=== PATIENT | female | born 1950 | race African-American/Black ===

== ENCOUNTER 2017-04-15 13:26 | Emergency (ER) | payer MEDICARE, OTHER ==
[2017-04-15] MEDS: PANTOPRAZOLE 40 MG INJ IV (18:58)
[2017-04-15] MEDS: SOD CHLORIDE 0.9% 1,000 ML IV (18:58)
[2017-04-15] MEDS: LORAZEPAM 2 MG INJ IV (18:59)
[2017-04-15] MEDS: morphine 4 MG/ML VIAL IV (18:59)
[2017-04-15] MEDS: ONDANSETRON 4 MG INJ IV (18:59)
[2017-04-15 19:04] LABS: ADD MAN DIFF? NO
[2017-04-15 19:05] LABS: WHITE BLOOD COUNT 5.4 10^3/ul (4.8-10.8)
[2017-04-15 19:06] LABS: BASOPHILS % 0.6 % (0.0-2.0); EOSINOPHILS # 0.1 10^3/ul (0.0-0.5); EOSINOPHILS % 0.9 % (0.0-7.0); HEMATOCRIT 38.9 % (37.0-47.0); LYMPHOCYTES # 1.2 10^3/ul (0.8-2.9); LYMPHOCYTES % 21.2 % (15.0-51.0); MEAN CORPUSCULAR HEMOGLOBIN 29.4 pg (29.0-33.0); MEAN CORPUSCULAR HGB CONC 33.4 g/dl (32.0-37.0); MEAN PLATELET VOLUME 10.6 fl (7.4-10.4); MONOCYTE # 0.6 10^3/ul (0.3-0.9); MONOCYTES % 11.6 % (0.0-11.0); NEUTROPHIL # 3.6 10^3/ul (1.6-7.5); NEUTROPHILS % 65.5 % (39.0-77.0); PLATELET COUNT 240 10^3/UL (140-415); RED BLOOD COUNT 4.42 10^6/ul (4.20-5.40)
[2017-04-15 19:23] LABS: INR 0.96; PROTIME 12.9 Sec (11.9-14.9)
[2017-04-15 19:24] LABS: ALANINE AMINOTRANSFERASE 32 IU/L (13-69); ALBUMIN 4.6 g/dl (3.3-4.9); ALBUMIN/GLOBULIN RATIO 1.12; ALKALINE PHOSPHATASE 84 IU/L (42-121); ANION GAP 16 (8-16); ASPARTATE AMINO TRANSFERASE 34 IU/L (15-46); BILIRUBIN,INDIRECT 0.3 mg/dl (0-1.1); BILIRUBIN,TOTAL 0.3 mg/dl (0.2-1.3); BLOOD UREA NITROGEN 18 mg/dl (7-20); CALCIUM 10.3 mg/dl (8.4-10.2); CARBON DIOXIDE 26 mmol/L (21-31); CHLORIDE 105 mmol/L (97-110); CREATININE 0.93 mg/dl (0.44-1.00); GLUCOSE 107 mg/dl (70-220); PARTIAL THROMBOPLASTIN TIME 33.3 Sec (25.0-35.0); POTASSIUM 4.1 mmol/L (3.5-5.1); SODIUM 143 mmol/L (135-144); TOTAL PROTEIN 8.7 g/dl (6.1-8.1)
[2017-04-15 19:36] LABS: TROPONIN-I < 0.012 ng/ml (0.00-0.12)
== END 2017-04-15 22:16 | disposition home or self-care (01) ==
LOC: E/R 13:26
DX: K62.5 Hemorrhage of anus and rectum (principal); J44.9 Chronic obstructive pulmonary disease, unspecified; Z85.118 Personal history of other malignant neoplasm of bronchus and lung
CPT/HCPCS: 36415; 74176; 80053; 84484; 85025; 85610; 85730; 86850; 86870; 86900; 86901; 93005; 96374; 96375; 99285-25

== ENCOUNTER 2017-05-08 19:07 | Emergency (ER) | payer MEDICARE, OTHER ==
[2017-05-08 21:46] LABS: ADD MAN DIFF? NO
[2017-05-08 21:48] LABS: WHITE BLOOD COUNT 5.6 10^3/ul (4.8-10.8)
[2017-05-08 21:48] LABS: BASOPHILS % 0.5 % (0.0-2.0); EOSINOPHILS # 0.1 10^3/ul (0.0-0.5); EOSINOPHILS % 1.3 % (0.0-7.0); HEMATOCRIT 37.7 % (37.0-47.0); HEMOGLOBIN 12.6 g/dl (12.0-16.0); LYMPHOCYTES # 1.2 10^3/ul (0.8-2.9); LYMPHOCYTES % 21.7 % (15.0-51.0); MEAN CORPUSCULAR HEMOGLOBIN 29.8 pg (29.0-33.0); MEAN CORPUSCULAR HGB CONC 33.4 g/dl (32.0-37.0); MEAN CORPUSCULAR VOLUME 89.1 fl (82.0-101.0); MEAN PLATELET VOLUME 10.5 fl (7.4-10.4); MONOCYTE # 0.6 10^3/ul (0.3-0.9); MONOCYTES % 11.3 % (0.0-11.0); NEUTROPHIL # 3.6 10^3/ul (1.6-7.5); PLATELET COUNT 246 10^3/UL (140-415); RED BLOOD COUNT 4.23 10^6/ul (4.20-5.40); RED CELL DISTRIBUTION WIDTH 14.6 % (11.5-14.5)
[2017-05-08 22:03] LABS: ADD UMIC YES; UR ASCORBIC ACID NEGATIVE (NEGATIVE); UR BILIRUBIN (Dip) NEGATIVE (NEGATIVE); UR BLOOD (Dip) 1+ mg/dL (NEGATIVE); UR CLARITY SLIGHTLY CLOUDY (CLEAR); UR COLOR YELLOW (YELLOW); UR GLUCOSE (Dip) NEGATIVE (NEGATIVE); UR KETONES (Dip) NEGATIVE (NEGATIVE); UR LEUKOCYTE ESTERASE (Dip) TRACE Leu/ul (NEGATIVE); UR NITRITE (Dip) NEGATIVE (NEGATIVE); UR RBC 1 /HPF (0-5); UR SPECIFIC GRAVITY (Dip) 1.009 (1.003-1.030); UR TOTAL PROTEIN (Dip) NEGATIVE (NEGATIVE); UR UROBILINOGEN (Dip) NEGATIVE (NEGATIVE); UR WBC 1 /HPF (0-5)
[2017-05-08 22:09] LABS: ALANINE AMINOTRANSFERASE 42 IU/L (13-69); ALBUMIN 4.5 g/dl (3.3-4.9); ALBUMIN/GLOBULIN RATIO 1.18; ALKALINE PHOSPHATASE 79 IU/L (42-121); ANION GAP 16 (8-16); ASPARTATE AMINO TRANSFERASE 39 IU/L (15-46); BILIRUBIN,INDIRECT 0.2 mg/dl (0-1.1); BILIRUBIN,TOTAL 0.2 mg/dl (0.2-1.3); BLOOD UREA NITROGEN 14 mg/dl (7-20); CALCIUM 9.7 mg/dl (8.4-10.2); CARBON DIOXIDE 26 mmol/L (21-31); CHLORIDE 104 mmol/L (97-110); GLUCOSE 96 mg/dl (70-220); LIPASE 94 U/L (23-300); POTASSIUM 3.8 mmol/L (3.5-5.1); SODIUM 142 mmol/L (135-144); TOTAL PROTEIN 8.3 g/dl (6.1-8.1)
[2017-05-08] MEDS: IOHEXOL 300MG/ML 150 ML BTL (23:49)
[2017-05-08] MEDS: SOD CHLORIDE 0.9% 100 ML (23:49)
[2017-05-09] MEDS: ACETAMINOPHEN 500 MG TAB PO (00:26)
== END 2017-05-09 01:18 | disposition home or self-care (01) ==
LOC: FTE 05-09 01:18
DX: S30.1XXA Contusion of abdominal wall, initial encounter (principal); R40.2142 Coma scale, eyes open, spontaneous, at arrival to emergency department; J44.9 Chronic obstructive pulmonary disease, unspecified; Y08.89XA Assault by other specified means, initial encounter; Z85.118 Personal history of other malignant neoplasm of bronchus and lung
CPT/HCPCS: 36415; 74177; 80053; 81001; 83690; 85025; 99285-25

== ENCOUNTER 2017-06-18 14:54 | Emergency (ER) | payer MEDICARE, OTHER | END 2017-06-18 15:16 | disposition home or self-care (01) | LOC: E/R 14:54 | DX: K02.9 Dental caries, unspecified (principal); K04.7 Periapical abscess without sinus; J44.9 Chronic obstructive pulmonary disease, unspecified; Z85.118 Personal history of other malignant neoplasm of bronchus and lung | CPT/HCPCS: 99284 ==

== ENCOUNTER 2018-02-08 16:46 | Emergency (ER) | payer MEDICARE, OTHER | END 2018-02-08 20:39 | disposition home or self-care (01) | LOC: FTE 20:39 | DX: J44.1 Chronic obstructive pulmonary disease with (acute) exacerbation (principal); Z85.118 Personal history of other malignant neoplasm of bronchus and lung | CPT/HCPCS: 99283; 99283-25 ==

== ENCOUNTER 2018-06-17 08:17 | Emergency (ER) | payer MEDICARE, OTHER ==
[2018-06-17] MEDS: morphine 2 MG INJ IV ×2 (09:11→09:56)
[2018-06-17] MEDS: VANCOMYCIN 1 GM (PMX) 250 ML IVPB (09:19)
[2018-06-17 09:23] LABS: WHITE BLOOD COUNT 14.4 10^3/ul (4.8-10.8)
[2018-06-17 09:23] LABS: ABNORMAL IP MESSAGE 1; ADD MAN DIFF? NO; BASOPHILS % 0.2 % (0.0-2.0); EOSINOPHILS % 0.2 % (0.0-7.0); HEMATOCRIT 40.4 % (37.0-47.0); HEMOGLOBIN 12.9 g/dl (12.0-16.0); LYMPHOCYTES # 0.6 10^3/ul (0.8-2.9); LYMPHOCYTES % 3.9 % (15.0-51.0); MEAN CORPUSCULAR HGB CONC 31.9 g/dl (32.0-37.0); MEAN CORPUSCULAR VOLUME 90.8 fl (82.0-101.0); MEAN PLATELET VOLUME 10.4 fl (7.4-10.4); NEUTROPHIL # 12.7 10^3/ul (1.6-7.5); NEUTROPHILS % 88.3 % (39.0-77.0); PLATELET COUNT 277 10^3/UL (140-415); RED BLOOD COUNT 4.45 10^6/ul (4.20-5.40); RED CELL DISTRIBUTION WIDTH 14.3 % (11.5-14.5)
[2018-06-17 09:35] LABS: POSITIVE DIFF @See below
[2018-06-17 11:26] LABS: ANION GAP 7 (5-13); BLOOD UREA NITROGEN 15 mg/dl (7-20); CALCIUM 9.8 mg/dl (8.4-10.2); CARBON DIOXIDE 26 mmol/L (21-31); CHLORIDE 106 mmol/L (97-110); Estimated GFR > 60 mL/min (>60); GLUCOSE 114 mg/dl (70-220); POTASSIUM 4.1 mmol/L (3.5-5.1); SODIUM 139 mmol/L (135-144)
== END 2018-06-17 13:30 | disposition home or self-care (01) ==
LOC: E/R 08:17
DX: N61.0 Mastitis without abscess (principal)
CPT/HCPCS: 36415; 71045; 80048; 85025; 96374; 96375; 96376; 99284-25

== ENCOUNTER 2018-06-25 18:28 | Inpatient (IN) | payer MEDICARE, OTHER ==
[2018-06-25] MEDS: ONDANSETRON 4 MG INJ IV ×2 (22:38→23:55)
[2018-06-25] MEDS: HYDROmorphONE 1 MG/ML SYG IV (22:38)
[2018-06-25 23:13] LABS: ADD MAN DIFF? NO
[2018-06-25 23:15] LABS: WHITE BLOOD COUNT 9.2 10^3/ul (4.8-10.8)
[2018-06-25 23:15] LABS: BASOPHILS % 0.3 % (0.0-2.0); EOSINOPHILS # 0.1 10^3/ul (0.0-0.5); EOSINOPHILS % 0.8 % (0.0-7.0); HEMATOCRIT 34.9 % (37.0-47.0); HEMOGLOBIN 11.7 g/dl (12.0-16.0); LYMPHOCYTES % 11.1 % (15.0-51.0); MEAN CORPUSCULAR HEMOGLOBIN 28.9 pg (29.0-33.0); MEAN CORPUSCULAR HGB CONC 33.5 g/dl (32.0-37.0); MEAN CORPUSCULAR VOLUME 86.2 fl (82.0-101.0); MEAN PLATELET VOLUME 10.2 fl (7.4-10.4); MONOCYTE # 1.3 10^3/ul (0.3-0.9); MONOCYTES % 14.3 % (0.0-11.0); NEUTROPHIL # 6.6 10^3/ul (1.6-7.5); NEUTROPHILS % 72.1 % (39.0-77.0); PLATELET COUNT 385 10^3/UL (140-415); RED BLOOD COUNT 4.05 10^6/ul (4.20-5.40); RED CELL DISTRIBUTION WIDTH 14.1 % (11.5-14.5)
[2018-06-25 23:20] LABS: ADD UMIC YES; UR ASCORBIC ACID NEGATIVE (NEGATIVE); UR BILIRUBIN (Dip) NEGATIVE (NEGATIVE); UR BLOOD (Dip) 1+ mg/dL (NEGATIVE); UR CLARITY CLEAR (CLEAR); UR COLOR STRAW (YELLOW); UR GLUCOSE (Dip) NEGATIVE (NEGATIVE); UR KETONES (Dip) NEGATIVE (NEGATIVE); UR LEUKOCYTE ESTERASE (Dip) NEGATIVE Leu/ul (NEGATIVE); UR NITRITE (Dip) NEGATIVE (NEGATIVE); UR RBC 2 /HPF (0-5); UR SPECIFIC GRAVITY (Dip) 1.009 (1.003-1.030); UR TOTAL PROTEIN (Dip) NEGATIVE (NEGATIVE); UR UROBILINOGEN (Dip) NEGATIVE (NEGATIVE); UR WBC 1 /HPF (0-5)
[2018-06-25 23:31] LABS: ALANINE AMINOTRANSFERASE 24 IU/L (13-69); ALBUMIN 4.3 g/dl (3.3-4.9); ALBUMIN/GLOBULIN RATIO 1.02; ALKALINE PHOSPHATASE 89 IU/L (42-121); ANION GAP 10 (5-13); ASPARTATE AMINO TRANSFERASE 43 IU/L (15-46); BILIRUBIN,INDIRECT 0.5 mg/dl (0-1.1); BILIRUBIN,TOTAL 0.5 mg/dl (0.2-1.3); BLOOD UREA NITROGEN 15 mg/dl (7-20); CALCIUM 10.5 mg/dl (8.4-10.2); CARBON DIOXIDE 26 mmol/L (21-31); CHLORIDE 93 mmol/L (97-110); CREATININE 0.83 mg/dl (0.44-1.00); Estimated GFR > 60 mL/min (>60); GLUCOSE 104 mg/dl (70-220); LIPASE 68 U/L (23-300); POTASSIUM 5.3 mmol/L (3.5-5.1); SODIUM 129 mmol/L (135-144); TOTAL PROTEIN 8.5 g/dl (6.1-8.1)
[2018-06-25 23:34] LABS: INR 0.92; PROTIME 12.5 Sec (11.9-14.9)
[2018-06-25 23:35] LABS: PARTIAL THROMBOPLASTIN TIME 33.9 Sec (23.0-35.0)
[2018-06-25] MEDS: HYDROmorphONE 0.5 MG/0.5 ML SYG IV (23:55)
[2018-06-26] MEDS: ONDANSETRON 4 MG INJ IV (03:25)
[2018-06-26] MEDS: DICYCLOMINE 20 MG INJ IM (03:41)
[2018-06-26] MEDS: metroNIDAZOLE 500 MG/NS (PMX) 100 ML IVPB ×4 (05:31→23:51)
[2018-06-26] MEDS: morphine 2 MG INJ IV ×4 (07:55→21:08)
[2018-06-27] MEDS: morphine 2 MG INJ IV ×6 (01:34→22:38)
[2018-06-27] MEDS: HYDROCODONE/APAP (5/325) TAB PO ×2 (02:14→16:50)
[2018-06-27] MEDS: metroNIDAZOLE 500 MG/NS (PMX) 100 ML IVPB ×3 (05:12→17:23)
[2018-06-27] MEDS: DOCUSATE SODIUM 100 MG CAP PO (05:19)
[2018-06-27] MEDS: ONDANSETRON 4 MG INJ IV ×2 (05:22→13:55)
[2018-06-27 06:08] LABS: ADD MAN DIFF? NO
[2018-06-27 06:18] LABS: BASOPHILS % 0.4 % (0.0-2.0); EOSINOPHILS # 0.1 10^3/ul (0.0-0.5); EOSINOPHILS % 0.7 % (0.0-7.0); HEMATOCRIT 32.3 % (37.0-47.0); HEMOGLOBIN 10.7 g/dl (12.0-16.0); LYMPHOCYTES # 1.1 10^3/ul (0.8-2.9); LYMPHOCYTES % 13.2 % (15.0-51.0); MEAN CORPUSCULAR HEMOGLOBIN 28.8 pg (29.0-33.0); MEAN CORPUSCULAR HGB CONC 33.1 g/dl (32.0-37.0); MEAN CORPUSCULAR VOLUME 87.1 fl (82.0-101.0); MEAN PLATELET VOLUME 9.7 fl (7.4-10.4); MONOCYTE # 1.1 10^3/ul (0.3-0.9); MONOCYTES % 14.1 % (0.0-11.0); NEUTROPHIL # 5.6 10^3/ul (1.6-7.5); NEUTROPHILS % 70.1 % (39.0-77.0); PLATELET COUNT 414 10^3/UL (140-415); RED BLOOD COUNT 3.71 10^6/ul (4.20-5.40)
[2018-06-27 07:19] LABS: ANION GAP 11 (5-13); BLOOD UREA NITROGEN 21 mg/dl (7-20); CALCIUM 9.6 mg/dl (8.4-10.2); CARBON DIOXIDE 24 mmol/L (21-31); CHLORIDE 95 mmol/L (97-110); CREATININE 0.98 mg/dl (0.44-1.00); Estimated GFR > 60 mL/min (>60); GLUCOSE 96 mg/dl (70-220); POTASSIUM 4.7 mmol/L (3.5-5.1); SODIUM 130 mmol/L (135-144)
[2018-06-27] MEDS: SOD CHLORIDE 0.9% 1,000 ML IV (17:23)
[2018-06-28] MEDS: metroNIDAZOLE 500 MG/NS (PMX) 100 ML IVPB ×4 (00:16→18:03)
[2018-06-28] MEDS: morphine 2 MG INJ IV ×5 (02:39→21:07)
[2018-06-28] MEDS: SOD CHLORIDE 0.9% 1,000 ML IV ×2 (12:06→18:09)
[2018-06-28] MEDS: PANTOPRAZOLE 40 MG INJ IV (18:03)
[2018-06-29] MEDS: metroNIDAZOLE 500 MG/NS (PMX) 100 ML IVPB ×5 (01:05→23:32)
[2018-06-29] MEDS: morphine 2 MG INJ IV ×6 (01:07→21:10)
[2018-06-29] MEDS: PANTOPRAZOLE 40 MG INJ IV ×2 (05:09→17:10)
[2018-06-29 09:15] LABS: ADD MAN DIFF? NO
[2018-06-29 09:19] LABS: BASOPHILS % 0.6 % (0.0-2.0); EOSINOPHILS # 0.1 10^3/ul (0.0-0.5); HEMATOCRIT 31.6 % (37.0-47.0); HEMOGLOBIN 10.2 g/dl (12.0-16.0); LYMPHOCYTES # 1.1 10^3/ul (0.8-2.9); LYMPHOCYTES % 21.2 % (15.0-51.0); MEAN CORPUSCULAR HEMOGLOBIN 28.6 pg (29.0-33.0); MEAN CORPUSCULAR HGB CONC 32.3 g/dl (32.0-37.0); MEAN CORPUSCULAR VOLUME 88.5 fl (82.0-101.0); MEAN PLATELET VOLUME 9.3 fl (7.4-10.4); MONOCYTE # 0.8 10^3/ul (0.3-0.9); MONOCYTES % 14.9 % (0.0-11.0); NEUTROPHIL # 3.1 10^3/ul (1.6-7.5); NEUTROPHILS % 60.3 % (39.0-77.0); PLATELET COUNT 413 10^3/UL (140-415); RED BLOOD COUNT 3.57 10^6/ul (4.20-5.40); RED CELL DISTRIBUTION WIDTH 14.6 % (11.5-14.5)
[2018-06-29 09:19] LABS: WHITE BLOOD COUNT 5.1 10^3/ul (4.8-10.8)
[2018-06-29 09:39] LABS: ANION GAP 6 (5-13); BLOOD UREA NITROGEN 12 mg/dl (7-20); CALCIUM 9.5 mg/dl (8.4-10.2); CARBON DIOXIDE 28 mmol/L (21-31); CHLORIDE 103 mmol/L (97-110); CREATININE 0.81 mg/dl (0.44-1.00); Estimated GFR > 60 mL/min (>60); GLUCOSE 90 mg/dl (70-220); POTASSIUM 4.6 mmol/L (3.5-5.1); SODIUM 137 mmol/L (135-144)
[2018-06-29] MEDS: SOD CHLORIDE 0.9% 1,000 ML IV (23:28)
[2018-06-30] MEDS: morphine 2 MG INJ IV ×5 (01:15→20:29)
[2018-06-30] MEDS: metroNIDAZOLE 500 MG/NS (PMX) 100 ML IVPB ×4 (05:32→23:57)
[2018-06-30] MEDS: PANTOPRAZOLE 40 MG INJ IV ×2 (05:32→17:53)
[2018-06-30] MEDS: CHLORDIAZEPOXIDE/CLIDINIUM CAP PO ×3 (12:02→20:28)
[2018-06-30] MEDS: HYDROCODONE/APAP (5/325) TAB PO (16:47)
[2018-06-30] MEDS: SOD CHLORIDE 0.9% 1,000 ML IV (17:53)
[2018-07-01] MEDS: HYDROCODONE/APAP (5/325) TAB PO ×4 (01:23→20:42)
[2018-07-01] MEDS: PANTOPRAZOLE 40 MG INJ IV ×2 (05:54→17:45)
[2018-07-01] MEDS: metroNIDAZOLE 500 MG/NS (PMX) 100 ML IVPB ×3 (05:54→17:45)
[2018-07-01 06:20] LABS: ADD MAN DIFF? NO
[2018-07-01 06:24] LABS: BASOPHILS % 0.5 % (0.0-2.0); EOSINOPHILS # 0.2 10^3/ul (0.0-0.5); EOSINOPHILS % 4.4 % (0.0-7.0); HEMATOCRIT 29.7 % (37.0-47.0); HEMOGLOBIN 9.7 g/dl (12.0-16.0); LYMPHOCYTES # 1.2 10^3/ul (0.8-2.9); MEAN CORPUSCULAR HEMOGLOBIN 29.1 pg (29.0-33.0); MEAN CORPUSCULAR HGB CONC 32.7 g/dl (32.0-37.0); MEAN CORPUSCULAR VOLUME 89.2 fl (82.0-101.0); MEAN PLATELET VOLUME 9.4 fl (7.4-10.4); MONOCYTE # 0.7 10^3/ul (0.3-0.9); MONOCYTES % 13.4 % (0.0-11.0); NEUTROPHIL # 3.3 10^3/ul (1.6-7.5); NEUTROPHILS % 59.3 % (39.0-77.0); PLATELET COUNT 415 10^3/UL (140-415); RED BLOOD COUNT 3.33 10^6/ul (4.20-5.40)
[2018-07-01 06:24] LABS: WHITE BLOOD COUNT 5.5 10^3/ul (4.8-10.8)
[2018-07-01 07:05] LABS: ALANINE AMINOTRANSFERASE 24 IU/L (13-69); ALBUMIN 3.5 g/dl (3.3-4.9); ALBUMIN/GLOBULIN RATIO 1.16; ALKALINE PHOSPHATASE 58 IU/L (42-121); ANION GAP 7 (5-13); ASPARTATE AMINO TRANSFERASE 30 IU/L (15-46); BILIRUBIN,INDIRECT 0.2 mg/dl (0-1.1); BILIRUBIN,TOTAL 0.2 mg/dl (0.2-1.3); BLOOD UREA NITROGEN 18 mg/dl (7-20); CALCIUM 9.2 mg/dl (8.4-10.2); CARBON DIOXIDE 29 mmol/L (21-31); CHLORIDE 103 mmol/L (97-110); CREATININE 0.92 mg/dl (0.44-1.00); Estimated GFR > 60 mL/min (>60); GLUCOSE 78 mg/dl (70-220); POTASSIUM 4.5 mmol/L (3.5-5.1); SODIUM 139 mmol/L (135-144); TOTAL PROTEIN 6.5 g/dl (6.1-8.1)
[2018-07-01] MEDS: CHLORDIAZEPOXIDE/CLIDINIUM CAP PO ×4 (08:01→20:42)
[2018-07-01] MEDS: SOD CHLORIDE 0.9% 1,000 ML IV (08:04)
[2018-07-01] MEDS: DOCUSATE SODIUM 100 MG CAP PO (14:46)
[2018-07-02] MEDS: metroNIDAZOLE 500 MG/NS (PMX) 100 ML IVPB ×4 (00:20→17:25)
[2018-07-02] MEDS: IBUPROFEN 400 MG TAB PO ×2 (00:56→07:36)
[2018-07-02] MEDS: HYDROCODONE/APAP (5/325) TAB PO (03:39)
[2018-07-02] MEDS: DOCUSATE SODIUM 100 MG CAP PO ×2 (03:47→13:15)
[2018-07-02] MEDS: PANTOPRAZOLE 40 MG INJ IV ×2 (06:05→17:26)
[2018-07-02 07:17] LABS: ADD MAN DIFF? NO
[2018-07-02 07:19] LABS: BASOPHILS % 0.2 % (0.0-2.0); EOSINOPHILS # 0.2 10^3/ul (0.0-0.5); EOSINOPHILS % 3.5 % (0.0-7.0); HEMATOCRIT 28.8 % (37.0-47.0); HEMOGLOBIN 9.4 g/dl (12.0-16.0); LYMPHOCYTES # 1.3 10^3/ul (0.8-2.9); LYMPHOCYTES % 25.6 % (15.0-51.0); MEAN CORPUSCULAR HEMOGLOBIN 29.4 pg (29.0-33.0); MEAN CORPUSCULAR HGB CONC 32.6 g/dl (32.0-37.0); MONOCYTE # 0.7 10^3/ul (0.3-0.9); MONOCYTES % 14.4 % (0.0-11.0); NEUTROPHIL # 2.7 10^3/ul (1.6-7.5); NEUTROPHILS % 55.5 % (39.0-77.0); PLATELET COUNT 396 10^3/UL (140-415); RED CELL DISTRIBUTION WIDTH 15.1 % (11.5-14.5)
[2018-07-02 07:19] LABS: WHITE BLOOD COUNT 4.9 10^3/ul (4.8-10.8)
[2018-07-02 07:36] LABS: ANION GAP 8 (5-13); BLOOD UREA NITROGEN 18 mg/dl (7-20); CALCIUM 9.2 mg/dl (8.4-10.2); CARBON DIOXIDE 27 mmol/L (21-31); CHLORIDE 103 mmol/L (97-110); CREATININE 0.97 mg/dl (0.44-1.00); Estimated GFR > 60 mL/min (>60); GLUCOSE 80 mg/dl (70-220); POTASSIUM 4.4 mmol/L (3.5-5.1); SODIUM 138 mmol/L (135-144)
[2018-07-02] MEDS: CHLORDIAZEPOXIDE/CLIDINIUM CAP PO ×4 (09:05→22:14)
[2018-07-02] MEDS: morphine 2 MG INJ IV ×4 (09:06→21:29)
[2018-07-03] MEDS: metroNIDAZOLE 500 MG/NS (PMX) 100 ML IVPB ×5 (00:51→23:47)
[2018-07-03] MEDS: morphine 2 MG INJ IV ×5 (02:35→22:31)
[2018-07-03] MEDS: PANTOPRAZOLE 40 MG INJ IV ×2 (06:00→17:56)
[2018-07-03] MEDS: DOCUSATE SODIUM 100 MG CAP PO (06:16)
[2018-07-03] MEDS: CHLORDIAZEPOXIDE/CLIDINIUM CAP PO ×4 (07:02→21:00)
[2018-07-03] MEDS: LUBIPROSTONE 24 MCG CAP PO ×2 (09:43→21:00)
[2018-07-03] MEDS: POLYETHYLENE GLYCOL 17 GM PACKET PO (09:52)
[2018-07-03] MEDS: HYDROCODONE/APAP (5/325) TAB PO (14:36)
[2018-07-03] MEDS: CEFTRIAXONE 1 GM/50 ML (PMX) 50 ML IVPB (22:32)
[2018-07-04] MEDS: morphine 2 MG INJ IV ×3 (03:23→13:13)
[2018-07-04 04:10] LABS: OCCULT BLOOD STOOL NEGATIVE (NEGATIVE)
[2018-07-04] MEDS: metroNIDAZOLE 500 MG/NS (PMX) 100 ML IVPB ×3 (05:47→17:54)
[2018-07-04] MEDS: PANTOPRAZOLE 40 MG INJ IV ×2 (05:59→17:54)
[2018-07-04] MEDS: HYDROCODONE/APAP (5/325) TAB PO ×3 (06:05→22:47)
[2018-07-04] MEDS: CHLORDIAZEPOXIDE/CLIDINIUM CAP PO ×4 (06:59→21:00)
[2018-07-04] MEDS: LUBIPROSTONE 24 MCG CAP PO ×2 (09:19→21:35)
[2018-07-04] MEDS: POLYETHYLENE GLYCOL 17 GM PACKET PO (09:19)
[2018-07-04 12:35] LABS: ADD MAN DIFF? NO
[2018-07-04 12:37] LABS: BASOPHILS % 0.4 % (0.0-2.0); EOSINOPHILS # 0.1 10^3/ul (0.0-0.5); EOSINOPHILS % 1.7 % (0.0-7.0); HEMATOCRIT 34.2 % (37.0-47.0); LYMPHOCYTES # 0.9 10^3/ul (0.8-2.9); LYMPHOCYTES % 17.4 % (15.0-51.0); MEAN CORPUSCULAR HEMOGLOBIN 29.5 pg (29.0-33.0); MEAN CORPUSCULAR HGB CONC 32.2 g/dl (32.0-37.0); MEAN CORPUSCULAR VOLUME 91.7 fl (82.0-101.0); MEAN PLATELET VOLUME 9.3 fl (7.4-10.4); MONOCYTE # 0.8 10^3/ul (0.3-0.9); MONOCYTES % 15.4 % (0.0-11.0); NEUTROPHIL # 3.5 10^3/ul (1.6-7.5); NEUTROPHILS % 64.7 % (39.0-77.0); PLATELET COUNT 436 10^3/UL (140-415); RED BLOOD COUNT 3.73 10^6/ul (4.20-5.40); RED CELL DISTRIBUTION WIDTH 15.6 % (11.5-14.5)
[2018-07-04 12:37] LABS: WHITE BLOOD COUNT 5.3 10^3/ul (4.8-10.8)
[2018-07-04 12:54] LABS: ANION GAP 9 (5-13); BLOOD UREA NITROGEN 15 mg/dl (7-20); CALCIUM 9.9 mg/dl (8.4-10.2); CARBON DIOXIDE 27 mmol/L (21-31); CHLORIDE 104 mmol/L (97-110); CREATININE 0.84 mg/dl (0.44-1.00); Estimated GFR > 60 mL/min (>60); GLUCOSE 97 mg/dl (70-220); POTASSIUM 4.2 mmol/L (3.5-5.1); SODIUM 140 mmol/L (135-144)
[2018-07-04 14:04] LABS: CARCINOEMBRYONIC ANTIGEN 2.8 ng/ml (0.0-5.0)
[2018-07-04] MEDS: OLANZAPINE 5 MG TAB PO (21:00)
[2018-07-04] MEDS: CEFTRIAXONE 1 GM/50 ML (PMX) 50 ML IVPB (21:35)
[2018-07-05] MEDS: metroNIDAZOLE 500 MG/NS (PMX) 100 ML IVPB ×5 (01:22→23:08)
[2018-07-05] MEDS: IBUPROFEN 400 MG TAB PO ×2 (01:24→09:33)
[2018-07-05 05:46] LABS: ADD MAN DIFF? NO
[2018-07-05 05:51] LABS: BASOPHILS % 0.8 % (0.0-2.0); EOSINOPHILS # 0.1 10^3/ul (0.0-0.5); EOSINOPHILS % 2.2 % (0.0-7.0); HEMATOCRIT 30.6 % (37.0-47.0); HEMOGLOBIN 10.1 g/dl (12.0-16.0); LYMPHOCYTES # 1.2 10^3/ul (0.8-2.9); LYMPHOCYTES % 23.3 % (15.0-51.0); MEAN CORPUSCULAR HEMOGLOBIN 29.8 pg (29.0-33.0); MEAN CORPUSCULAR VOLUME 90.3 fl (82.0-101.0); MEAN PLATELET VOLUME 9.4 fl (7.4-10.4); MONOCYTE # 0.8 10^3/ul (0.3-0.9); MONOCYTES % 15.7 % (0.0-11.0); NEUTROPHILS % 57.8 % (39.0-77.0); PLATELET COUNT 399 10^3/UL (140-415); RED BLOOD COUNT 3.39 10^6/ul (4.20-5.40); RED CELL DISTRIBUTION WIDTH 15.4 % (11.5-14.5)
[2018-07-05 05:51] LABS: WHITE BLOOD COUNT 5.1 10^3/ul (4.8-10.8)
[2018-07-05] MEDS: morphine 2 MG INJ IV ×5 (06:06→23:09)
[2018-07-05] MEDS: PANTOPRAZOLE 40 MG INJ IV ×2 (06:06→17:07)
[2018-07-05 06:23] LABS: ALANINE AMINOTRANSFERASE 18 IU/L (13-69); ALBUMIN 3.6 g/dl (3.3-4.9); ALBUMIN/GLOBULIN RATIO 1.12; ALKALINE PHOSPHATASE 66 IU/L (42-121); ANION GAP 8 (5-13); ASPARTATE AMINO TRANSFERASE 29 IU/L (15-46); BILIRUBIN,INDIRECT 0.2 mg/dl (0-1.1); BILIRUBIN,TOTAL 0.2 mg/dl (0.2-1.3); BLOOD UREA NITROGEN 19 mg/dl (7-20); CALCIUM 9.5 mg/dl (8.4-10.2); CARBON DIOXIDE 24 mmol/L (21-31); CHLORIDE 106 mmol/L (97-110); CREATININE 0.87 mg/dl (0.44-1.00); Estimated GFR > 60 mL/min (>60); GLUCOSE 92 mg/dl (70-220); POTASSIUM 4.4 mmol/L (3.5-5.1); SODIUM 138 mmol/L (135-144); TOTAL PROTEIN 6.8 g/dl (6.1-8.1)
[2018-07-05] MEDS: CHLORDIAZEPOXIDE/CLIDINIUM CAP PO ×4 (07:30→20:49)
[2018-07-05] MEDS: POLYETHYLENE GLYCOL 17 GM PACKET PO (08:36)
[2018-07-05] MEDS: LUBIPROSTONE 24 MCG CAP PO ×2 (08:36→20:49)
[2018-07-05] MEDS: HYDROCODONE/APAP (5/325) TAB PO ×2 (09:32→17:15)
[2018-07-05] MEDS: OLANZAPINE 5 MG TAB PO (20:49)
[2018-07-05] MEDS: CEFTRIAXONE 1 GM/50 ML (PMX) 50 ML IVPB (20:49)
[2018-07-06] MEDS: morphine 2 MG INJ IV ×3 (04:01→12:47)
[2018-07-06] MEDS: PANTOPRAZOLE 40 MG INJ IV ×2 (05:36→17:33)
[2018-07-06] MEDS: metroNIDAZOLE 500 MG/NS (PMX) 100 ML IVPB ×3 (05:36→17:32)
[2018-07-06] MEDS: LUBIPROSTONE 24 MCG CAP PO ×2 (08:20→20:53)
[2018-07-06] MEDS: CHLORDIAZEPOXIDE/CLIDINIUM CAP PO ×4 (08:20→20:52)
[2018-07-06] MEDS: POLYETHYLENE GLYCOL 17 GM PACKET PO (08:20)
[2018-07-06] MEDS: HYDROCODONE/APAP (5/325) TAB PO (10:35)
[2018-07-06] MEDS: IBUPROFEN 400 MG TAB PO ×2 (12:46→20:53)
[2018-07-06] MEDS: ASA/ACETAMINOPHEN/CAFF TAB PO ×2 (16:52→23:02)
[2018-07-06] MEDS: CEFTRIAXONE 1 GM/50 ML (PMX) 50 ML IVPB (20:53)
[2018-07-06] MEDS: OLANZAPINE 5 MG TAB PO (20:55)
[2018-07-07] MEDS: metroNIDAZOLE 500 MG/NS (PMX) 100 ML IVPB ×4 (00:31→17:26)
[2018-07-07] MEDS: IBUPROFEN 400 MG TAB PO ×3 (03:59→20:32)
[2018-07-07] MEDS: ASA/ACETAMINOPHEN/CAFF TAB PO ×3 (05:21→17:48)
[2018-07-07] MEDS: PANTOPRAZOLE 40 MG INJ IV ×2 (05:21→17:26)
[2018-07-07 07:07] LABS: ADD MAN DIFF? NO
[2018-07-07 07:20] LABS: BASOPHILS % 0.5 % (0.0-2.0); EOSINOPHILS # 0.2 10^3/ul (0.0-0.5); HEMATOCRIT 31.4 % (37.0-47.0); HEMOGLOBIN 10.2 g/dl (12.0-16.0); LYMPHOCYTES % 25.5 % (15.0-51.0); MEAN CORPUSCULAR HEMOGLOBIN 29.7 pg (29.0-33.0); MEAN CORPUSCULAR HGB CONC 32.5 g/dl (32.0-37.0); MEAN CORPUSCULAR VOLUME 91.3 fl (82.0-101.0); MEAN PLATELET VOLUME 9.6 fl (7.4-10.4); MONOCYTE # 0.6 10^3/ul (0.3-0.9); MONOCYTES % 14.6 % (0.0-11.0); NEUTROPHIL # 2.2 10^3/ul (1.6-7.5); NEUTROPHILS % 54.7 % (39.0-77.0); PLATELET COUNT 368 10^3/UL (140-415); RED BLOOD COUNT 3.44 10^6/ul (4.20-5.40); RED CELL DISTRIBUTION WIDTH 15.7 % (11.5-14.5)
[2018-07-07 07:36] LABS: ANION GAP 6 (5-13); BLOOD UREA NITROGEN 15 mg/dl (7-20); CALCIUM 9.4 mg/dl (8.4-10.2); CARBON DIOXIDE 26 mmol/L (21-31); CHLORIDE 106 mmol/L (97-110); CREATININE 0.94 mg/dl (0.44-1.00); Estimated GFR > 60 mL/min (>60); GLUCOSE 116 mg/dl (70-220); SODIUM 138 mmol/L (135-144)
[2018-07-07] MEDS: POLYETHYLENE GLYCOL 17 GM PACKET PO (08:27)
[2018-07-07] MEDS: CHLORDIAZEPOXIDE/CLIDINIUM CAP PO ×4 (08:27→20:32)
[2018-07-07] MEDS: LUBIPROSTONE 24 MCG CAP PO (08:27)
[2018-07-07] MEDS ORDERED: POLYETHYLENE GLYCOL 17 GM PACKET PO (12:30)
[2018-07-07] MEDS: ONDANSETRON 4 MG INJ IV (15:28)
[2018-07-07] MEDS: OLANZAPINE 5 MG TAB PO (20:32)
[2018-07-07] MEDS: CEFAZOLIN 1 GM/50 ML (PMX) 50 ML IVPB (21:54)
[2018-07-08] MEDS: ASA/ACETAMINOPHEN/CAFF TAB PO ×4 (00:20→22:19)
[2018-07-08] MEDS: IBUPROFEN 400 MG TAB PO ×3 (03:19→19:42)
[2018-07-08 05:25] LABS: ADD MAN DIFF? NO
[2018-07-08 05:35] LABS: BASOPHILS % 0.5 % (0.0-2.0); EOSINOPHILS # 0.1 10^3/ul (0.0-0.5); EOSINOPHILS % 2.3 % (0.0-7.0); HEMATOCRIT 30.2 % (37.0-47.0); HEMOGLOBIN 9.8 g/dl (12.0-16.0); LYMPHOCYTES # 0.9 10^3/ul (0.8-2.9); LYMPHOCYTES % 21.6 % (15.0-51.0); MEAN CORPUSCULAR HEMOGLOBIN 29.2 pg (29.0-33.0); MEAN CORPUSCULAR HGB CONC 32.5 g/dl (32.0-37.0); MEAN CORPUSCULAR VOLUME 89.9 fl (82.0-101.0); MEAN PLATELET VOLUME 9.9 fl (7.4-10.4); MONOCYTE # 0.6 10^3/ul (0.3-0.9); MONOCYTES % 14.4 % (0.0-11.0); NEUTROPHIL # 2.6 10^3/ul (1.6-7.5); NEUTROPHILS % 60.7 % (39.0-77.0); PLATELET COUNT 328 10^3/UL (140-415); RED BLOOD COUNT 3.36 10^6/ul (4.20-5.40); RED CELL DISTRIBUTION WIDTH 15.6 % (11.5-14.5)
[2018-07-08 05:35] LABS: WHITE BLOOD COUNT 4.3 10^3/ul (4.8-10.8)
[2018-07-08] MEDS: CEFAZOLIN 1 GM/50 ML (PMX) 50 ML IVPB ×3 (05:52→22:16)
[2018-07-08] MEDS: PANTOPRAZOLE 40 MG INJ IV ×2 (05:52→17:30)
[2018-07-08 06:06] LABS: ANION GAP 7 (5-13); BLOOD UREA NITROGEN 16 mg/dl (7-20); CALCIUM 9.1 mg/dl (8.4-10.2); CARBON DIOXIDE 27 mmol/L (21-31); CHLORIDE 105 mmol/L (97-110); CREATININE 1.01 mg/dl (0.44-1.00); Estimated GFR > 60 mL/min (>60); GLUCOSE 102 mg/dl (70-220); POTASSIUM 3.9 mmol/L (3.5-5.1); SODIUM 139 mmol/L (135-144)
[2018-07-08] MEDS: CHLORDIAZEPOXIDE/CLIDINIUM CAP PO ×4 (08:01→22:16)
[2018-07-08] MEDS: OLANZAPINE 5 MG TAB PO (22:16)
[2018-07-09] MEDS: IBUPROFEN 400 MG TAB PO ×3 (04:11→19:56)
[2018-07-09] MEDS: CEFAZOLIN 1 GM/50 ML (PMX) 50 ML IVPB ×2 (05:54→15:26)
[2018-07-09] MEDS: PANTOPRAZOLE 40 MG INJ IV ×2 (05:54→18:29)
[2018-07-09] MEDS: ASA/ACETAMINOPHEN/CAFF TAB PO ×3 (08:49→23:41)
[2018-07-09] MEDS: CHLORDIAZEPOXIDE/CLIDINIUM CAP PO ×4 (08:49→20:00)
[2018-07-09] MEDS: OLANZAPINE 5 MG TAB PO (20:00)
[2018-07-10] MEDS: PANTOPRAZOLE 40 MG INJ IV ×2 (05:16→17:21)
[2018-07-10] MEDS: IBUPROFEN 400 MG TAB PO ×2 (05:16→14:16)
[2018-07-10] MEDS: CHLORDIAZEPOXIDE/CLIDINIUM CAP PO ×4 (09:45→20:19)
[2018-07-10] MEDS: ASA/ACETAMINOPHEN/CAFF TAB PO ×2 (09:48→20:19)
[2018-07-10] MEDS: OLANZAPINE 5 MG TAB PO (20:19)
[2018-07-11] MEDS: ASA/ACETAMINOPHEN/CAFF TAB PO ×2 (02:19→14:32)
[2018-07-11] MEDS: PANTOPRAZOLE 40 MG INJ IV (05:59)
[2018-07-11] MEDS: IBUPROFEN 400 MG TAB PO (06:02)
[2018-07-11] MEDS: CHLORDIAZEPOXIDE/CLIDINIUM CAP PO ×3 (08:33→17:28)
[2018-07-11 08:50] LABS: ADD MAN DIFF? NO
[2018-07-11 08:53] LABS: BASOPHILS % 0.5 % (0.0-2.0); EOSINOPHILS # 0.2 10^3/ul (0.0-0.5); EOSINOPHILS % 5.2 % (0.0-7.0); HEMATOCRIT 35.3 % (37.0-47.0); HEMOGLOBIN 11.3 g/dl (12.0-16.0); LYMPHOCYTES % 24.6 % (15.0-51.0); MEAN CORPUSCULAR HEMOGLOBIN 29.6 pg (29.0-33.0); MEAN CORPUSCULAR VOLUME 92.4 fl (82.0-101.0); MONOCYTE # 0.7 10^3/ul (0.3-0.9); MONOCYTES % 17.5 % (0.0-11.0); NEUTROPHIL # 2.2 10^3/ul (1.6-7.5); NEUTROPHILS % 51.7 % (39.0-77.0); PLATELET COUNT 294 10^3/UL (140-415); RED BLOOD COUNT 3.82 10^6/ul (4.20-5.40); RED CELL DISTRIBUTION WIDTH 15.6 % (11.5-14.5)
[2018-07-11 08:53] LABS: WHITE BLOOD COUNT 4.2 10^3/ul (4.8-10.8)
[2018-07-11 09:27] LABS: ALANINE AMINOTRANSFERASE 21 IU/L (13-69); ALBUMIN 3.9 g/dl (3.3-4.9); ALBUMIN/GLOBULIN RATIO 1.11; ALKALINE PHOSPHATASE 63 IU/L (42-121); ANION GAP 8 (5-13); ASPARTATE AMINO TRANSFERASE 36 IU/L (15-46); BILIRUBIN,INDIRECT 0.2 mg/dl (0-1.1); BILIRUBIN,TOTAL 0.2 mg/dl (0.2-1.3); BLOOD UREA NITROGEN 18 mg/dl (7-20); CALCIUM 9.7 mg/dl (8.4-10.2); CARBON DIOXIDE 30 mmol/L (21-31); CHLORIDE 104 mmol/L (97-110); Estimated GFR > 60 mL/min (>60); GLUCOSE 75 mg/dl (70-220); POTASSIUM 4.8 mmol/L (3.5-5.1); SODIUM 142 mmol/L (135-144); TOTAL PROTEIN 7.4 g/dl (6.1-8.1)
== END 2018-07-11 17:30 | disposition home or self-care (01) | DRG 445 ==
LOC: E/R 18:28 → PP2 06-26 04:55
DX: K80.20 Calculus of gallbladder without cholecystitis without obstruction (principal); E87.1 Hypo-osmolality and hyponatremia; Z68.1 Body mass index [BMI] 19.9 or less, adult; R19.7 Diarrhea, unspecified; J44.9 Chronic obstructive pulmonary disease, unspecified; I25.10 Atherosclerotic heart disease of native coronary artery without angina pectoris; D64.9 Anemia, unspecified; E87.5 Hyperkalemia; K76.89 Other specified diseases of liver; F20.9 Schizophrenia, unspecified; R51 Headache; R35.8 Other polyuria; Z85.118 Personal history of other malignant neoplasm of bronchus and lung; N64.4 Mastodynia; D50.9 Iron deficiency anemia, unspecified
CPT/HCPCS: 36415; 70450; 74176; 74181; 76642; 76856; 78226; 80048; 80053; 81001; 82270; 82378; 83690; 85025; 85610; 85730; 87086; 96372; 96374; 96375; 96376; 99285-25

== ENCOUNTER 2018-11-02 11:53 | Emergency (ER) | payer MEDICARE, OTHER | END 2018-11-02 13:20 | disposition home or self-care (01) | LOC: FTE 11:53 | DX: J04.0 Acute laryngitis (principal) | CPT/HCPCS: 99283 ==

== ENCOUNTER → 2018-11-18 | Emergency (ER) | payer MEDICARE, OTHER ==
[2018-11-18] MEDS: SOD CHLORIDE 0.9% 500 ML IV (18:00)
[2018-11-18] MEDS: KETOROLAC 15 MG INJ IV (18:01)
[2018-11-18] MEDS: ONDANSETRON 4 MG INJ IV (18:01)
[2018-11-18 18:40] LABS: ADD MAN DIFF? NO
[2018-11-18 18:43] LABS: WHITE BLOOD COUNT 5.1 10^3/ul (4.8-10.8)
[2018-11-18 18:43] LABS: BASOPHILS % 0.4 % (0.0-2.0); EOSINOPHILS # 0.1 10^3/ul (0.0-0.5); EOSINOPHILS % 1.9 % (0.0-7.0); HEMATOCRIT 36.1 % (37.0-47.0); HEMOGLOBIN 11.7 g/dl (12.0-16.0); LYMPHOCYTES % 19.5 % (15.0-51.0); MEAN CORPUSCULAR HEMOGLOBIN 30.1 pg (29.0-33.0); MEAN CORPUSCULAR HGB CONC 32.4 g/dl (32.0-37.0); MEAN CORPUSCULAR VOLUME 92.8 fl (82.0-101.0); MEAN PLATELET VOLUME 10.5 fl (7.4-10.4); MONOCYTE # 0.6 10^3/ul (0.3-0.9); MONOCYTES % 11.7 % (0.0-11.0); NEUTROPHIL # 3.4 10^3/ul (1.6-7.5); NEUTROPHILS % 66.1 % (39.0-77.0); PLATELET COUNT 221 10^3/UL (140-415); RED BLOOD COUNT 3.89 10^6/ul (4.20-5.40); RED CELL DISTRIBUTION WIDTH 14.3 % (11.5-14.5)
[2018-11-18 19:08] LABS: ALANINE AMINOTRANSFERASE 24 IU/L (13-69); ALBUMIN 3.9 g/dl (3.3-4.9); ALBUMIN/GLOBULIN RATIO 1.14; ALKALINE PHOSPHATASE 66 IU/L (42-121); ANION GAP 7 (5-13); ASPARTATE AMINO TRANSFERASE 28 IU/L (15-46); BILIRUBIN,INDIRECT 0.2 mg/dl (0-1.1); BILIRUBIN,TOTAL 0.2 mg/dl (0.2-1.3); BLOOD UREA NITROGEN 14 mg/dl (7-20); CALCIUM 8.9 mg/dl (8.4-10.2); CARBON DIOXIDE 26 mmol/L (21-31); CHLORIDE 106 mmol/L (97-110); CREATININE 0.96 mg/dl (0.44-1.00); Estimated GFR > 60 mL/min (>60); GLUCOSE 82 mg/dl (70-220); LIPASE 46 U/L (23-300); POTASSIUM 3.6 mmol/L (3.5-5.1); SODIUM 139 mmol/L (135-144); TOTAL PROTEIN 7.3 g/dl (6.1-8.1)
[2018-11-18 19:20] LABS: TROPONIN-I < 0.012 ng/ml (0.000-0.120)
[2018-11-18 19:24] LABS: ADD UMIC YES; UR ASCORBIC ACID 40 mg/dL (NEGATIVE); UR BILIRUBIN (Dip) NEGATIVE (NEGATIVE); UR BLOOD (Dip) NEGATIVE (NEGATIVE); UR CLARITY SLIGHTLY CLOUDY (CLEAR); UR COLOR YELLOW (YELLOW); UR GLUCOSE (Dip) NEGATIVE (NEGATIVE); UR KETONES (Dip) NEGATIVE (NEGATIVE); UR LEUKOCYTE ESTERASE (Dip) TRACE Leu/ul (NEGATIVE); UR NITRITE (Dip) NEGATIVE (NEGATIVE); UR RBC 2 /HPF (0-5); UR SPECIFIC GRAVITY (Dip) 1.013 (1.003-1.030); UR TOTAL PROTEIN (Dip) NEGATIVE (NEGATIVE); UR UROBILINOGEN (Dip) NEGATIVE (NEGATIVE); UR WBC 1 /HPF (0-5)
[2018-11-18] MEDS: IOHEXOL 300MG/ML 150 ML BTL (19:45)
[2018-11-18] MEDS: SOD CHLORIDE 0.9% 100 ML (19:45)
== END | disposition home or self-care (01) ==
LOC: E/R 17:16
DX: C34.91 Malignant neoplasm of unspecified part of right bronchus or lung (principal); J44.9 Chronic obstructive pulmonary disease, unspecified; F17.210 Nicotine dependence, cigarettes, uncomplicated; E86.0 Dehydration
CPT/HCPCS: 70491; 71045; 80053; 81001; 83690; 84484; 85025; 93005; 96374; 96375; 99285-25